=== PATIENT | female | born 1945 | race Caucasian/White ===

== ENCOUNTER 2017-02-27 09:00 | Outpatient (CLI) | payer MEDICARE, BC ==
[2013-01-08 23:02] VITALS: BMI 28.4
[~2017-02-27 09:00] MED LIST: COLACE100 MG PO; GLUCOPHAGE500 MG PO; LEVAQUIN500 MG PO; NIFEREX-150 F1 UDCAP PO; NOVOLOG MIX 70/10 ML SQ; PRILOSEC20 MG PO; ZESTORETIC 20/21 TAB PO
== END 2017-02-27 23:59 | disposition home or self-care (01) ==
LOC: D.MAMMO 09:00
DX: Z12.31 Encounter for screening mammogram for malignant neoplasm of breast (principal)

== ENCOUNTER 2019-01-19 11:00 | Outpatient (CLI) | payer MEDICARE, BC ==
[2013-01-08 23:02] VITALS: BMI 28.4
== END 2019-01-19 11:30 | disposition home or self-care (01) ==
LOC: D.MAMMO 11:00
PROVIDERS: ATTEND Family Medicine
DX: Z12.31 Encounter for screening mammogram for malignant neoplasm of breast (principal)

== ENCOUNTER 2020-10-16 21:18 | Emergency (ER) | payer MEDICARE, BC ==
[~2020-10-16] VITALS: Ht 160 cm; Wt 75.0 kg
[2020-10-16 21:25] VITALS: Ht 160 cm; Wt 75.0 kg
[2020-10-17 00:30] LABS: BASOPHILS 0.3 % (0-2); EOSINOPHILS 0.2 % (0-7); HEMATOCRIT 29.3 % (36.0-48.0); HEMOGLOBIN 9.6 g/dL (12-16); LYMPHOCYTES 8.8 % (15-50); MCH 28.8 pg (26.0-34.0); MCHC 32.8 g/dL (31.0-37.0); MCV 87.9 fL (80.0-100.0); MEAN PLATELET VOLUME 7.2 fL (7.4-10.4); MONOCYTES 5.4 % (2-11); NEUTROPHILS 85.3 % (40-80); RBC 3.33 10x6/uL (4.00-5.40); RDW 16.3 % (11.5-14.5); WBC 9.1 10x3/uL (4.8-10.8)
[2020-10-17 00:34] LABS: APTT 25.7 SECONDS (22.8-39.4); INR 1.25 (0.85-1.17); PROTIME 14.5 SECONDS (11.6-15.0)
[2020-10-17 00:40] LABS: PLATELET COUNT 217 10x3/uL (130-400)
[2020-10-17 00:58] LABS: ALBUMIN 3.5 g/dL (3.4-5.0); ALKALINE PHOSPHATASE 29 U/L (30-120); ALT (SGPT) 29 U/L (10-68); BILIRUBIN - TOTAL 0.32 mg/dL (0.2-1.3); CALCIUM 8.8 mg/dL (8.5-10.1); CARBON DIOXIDE 20.9 mmol/L (21.0-32.0); CHLORIDE - SERUM 98 mmol/L (98-107); CREATININE - SERUM 1.7 mg/dL (0.6-1.3); PROTEIN - SERUM 6.9 g/dL (6.4-8.2); SODIUM 131 mmol/L (136-145); UREA NITROGEN 43 mg/dL (7-18); eGFR NON AFRICAN AMERICAN 31 mL/min (90-120)
[2020-10-17 01:12] LABS: CALC OSMOLALITY 284 mosm/kg (275-300); GLUCOSE 292 mg/dL (74-106)
[2020-10-17 01:13] LABS: POTASSIUM - SERUM 6.6 mmol/L (3.5-5.1); TROPONIN-I < 0.017 ng/mL (0.000-0.060)
[2020-10-17 01:41] LABS: ANION GAP 18.3 mmol/L (8-16); CARBON DIOXIDE 20.7 mmol/L (21.0-32.0)
[2020-10-17 02:24] VITALS: BP 144/65
== END 2020-10-17 02:25 | disposition short-term general hospital (02) ==
LOC: D.ER 21:18
PROVIDERS: Family Medicine
DX: S42.302A Unspecified fracture of shaft of humerus, left arm, initial encounter for closed fracture (principal); S42.301A Unspecified fracture of shaft of humerus, right arm, initial encounter for closed fracture; W19.XXXA Unspecified fall, initial encounter; Z96.651 Presence of right artificial knee joint; I10 Essential (primary) hypertension; E11.9 Type 2 diabetes mellitus without complications; K21.9 Gastro-esophageal reflux disease without esophagitis